=== PATIENT | male | born 1950 | race Two or more races ===

== ENCOUNTER 2025-05-13 06:20 | Emergency (ER) | payer OTHER ==
[~2025-05-13] VITALS: Ht 165.1 cm; Wt 95.3 kg
[2025-05-13] MEDS ORDERED: ATORVASTATIN CA40 MG PO (06:42)
[2025-05-13] MEDS ORDERED: METFORMIN HCL500 M4 PO (06:42)
[2025-05-13] MEDS ORDERED: LOSARTAN-HCTZ1 EAC2 PO (06:42)
[2025-05-13] MEDS ORDERED: ZOLPIDEM TARTRAT5 MG PO (06:42)
[2025-05-13 07:29] LABS: BASO % 0.4 % (0.1-1.2); EOS # 0.35 (0.04-0.54); EOS % 4.8 % (0.7-7.0); LYMPH # 1.42 (1.18-3.74); LYMPH % 19.6 % (19.3-53.1); MEAN PLATELET VOLUME 10.50 fl (9.4-12.4); MONO # 0.40 (0.24-0.82); MONO % 5.5 % (4.7-12.5); NEUT # 5.01 (1.56-6.13); NEUT % 69.4 % (34.0-71.1); RED CELL DISTRIBUTION WIDTH 12.3 % (11.6-14.4)
[2025-05-13 08:33] LABS: COVID-19 AG NEGATIVE (NEGATIVE)
== END 2025-05-13 08:56 | disposition home or self-care (01) ==
LOC: ER 06:20
PROVIDERS: General Practice
DX: J10.1 Influenza due to other identified influenza virus with other respiratory manifestations (principal); J02.8 Acute pharyngitis due to other specified organisms; Z20.822 Contact with and (suspected) exposure to COVID-19